=== PATIENT | male | born 1990 | race Caucasian/White ===

== ENCOUNTER 2017-02-22 13:45 | Emergency (ER) | payer OTHER ==
[~2017-02-22] VITALS: Ht 175.3 cm; Wt 114.3 kg
[2017-02-22 14:05] VITALS: Ht 175.3 cm; Wt 114.3 kg
[2017-02-22 16:44] VITALS: BP 145/95
== END 2017-02-22 16:44 | disposition home or self-care (01) ==
LOC: ED 13:45
DX: J11.1 Influenza due to unidentified influenza virus with other respiratory manifestations (principal)

== ENCOUNTER 2018-02-05 14:11 | Emergency (ER) | payer OTHER ==
[~2018-02-05] VITALS: Ht 175.3 cm; Wt 117.0 kg
[2018-02-05 14:55] VITALS: Ht 175.3 cm; Wt 117.0 kg
[2018-02-05 16:52] LABS: BASOPHIL % 0.3 % (0-2); PLATELET COUNT 175 x10^3mcL (130-400); RED CELL DISTRIBUTION WIDTH 12.6 % (11.5-14.5)
[2018-02-05 17:01] LABS: CALCIUM 8.5 mg/dL (8.5-10.1); CARBON DIOXIDE 26.4 mmol/L (21-32); CHLORIDE SERUM 99 mmol/L (98-107); CREATININE SERUM 0.8 mg/dL (0.7-1.3); GFR1 > 60 mL/min; GLUCOSE SERUM 108 mg/dL (74-106); POTASSIUM SERUM 3.2 mmol/L (3.5-5.1); SODIUM SERUM 135 mmol/L (136-145)
[2018-02-05 17:04] LABS: ALBUMIN 3.7 g/dL (3.4-5.0); ALKALINE PHOSPHATASE 46 U/L (46-116); ALT/SGPT 101 U/L (16-63); AST/SGOT 53 U/L (15-37); BILIRUBIN TOTAL 0.61 mg/dL (0.20-1.00); TOTAL PROTEIN, SERUM 8.3 g/dL (6.4-8.2)
[2018-02-05 17:53] VITALS: BP 134/83
== END 2018-02-05 17:53 | disposition home or self-care (01) ==
LOC: ED 14:11
PROVIDERS: Emergency Medicine
DX: B34.9 Viral infection, unspecified (principal)
CPT/HCPCS: J1885; J7030; Q0092; Q0162